=== PATIENT | male | born 1975 | race American Indian/Alaskan Native ===

== ENCOUNTER 2019-12-28 11:49 | Emergency (ER) | payer SELFPAY ==
[2019-12-28] MEDS ORDERED: cloNIDine 0.1 MG TAB PO ONE (15:02)
--- NOTE | 2019-12-28 15:02 | Emergency Department Report ---
- General Chief Complaint: Upper Respiratory Infection Stated Complaint: COUGH Time Seen by Provider: 12/28/19 14:53 Source: patient Mode of arrival: Ambulatory Limitations: No Limitations - History of Present Illness Initial Comments: Patient is 45 years old male with history of hypertension, noncompliant with his medication. Patient presented to the ER complaining of runny nose, cough and congestion for the last 5 days. Patient stated that he works at [employer] and he was asked to come to the ER for evaluation before he can come back to work. Patient denies any fever or chills. He stated that he has been having some sore throat. Patient denied any shortness of breath or chest pain. No nausea or vomiting. No other complaint. MD Complaint: fever, cough, nasal congestion -: days(s) (5) Severity: moderate Consistency: constant - Related Data Allergies Allergy/AdvReac Type Severity Reaction Status Date / Time No Known Allergies Allergy Unverified 12/28/19 11:52 ED Review of Systems ROS: Stated complaint: COUGH Other details as noted in HPI Comment: All other systems reviewed and negative Constitutional: denies: chills, fever ENT: congestion Respiratory: cough. denies: orthopnea, shortness of breath, SOB with exertion, SOB at rest Cardiovascular: palpitations. denies: chest pain Gastrointestinal: denies: abdominal pain, nausea, vomiting, diarrhea, constipation, hematemesis, melena, hematochezia Musculoskeletal: denies: back pain Neurological: denies: headache, weakness, numbness, paresthesias, confusion, abnormal gait ED Past Medical Hx - Past Medical History Hx Hypertension: Yes - Surgical History Additional Surgical History: open heart surgery - Social History Smoking Status: Never Smoker Substance Use Type: Alcohol ED Physical Exam - General Limitations: No Limitations General appearance: alert, in no apparent distress - Head Head exam: Present: atraumatic, normocephalic, normal inspection - Eye Eye exam: Present: normal appearance - ENT ENT exam: Present: normal exam, normal orophraynx, mucous membranes moist - Neck Neck exam: Present: normal inspection, full ROM. Absent: tenderness, meningismus, lymphadenopathy, thyromegaly - Respiratory Respiratory exam: Present: normal lung sounds bilaterally - Cardiovascular Cardiovascular Exam: Present: regular rate, normal rhythm, normal heart sounds - GI/Abdominal GI/Abdominal exam: Present: soft, normal bowel sounds. Absent: distended, tenderness, guarding, rebound, rigid, organomegaly, mass, bruit, pulsatile mass, hernia - Extremities Exam Extremities exam: Present: normal inspection, full ROM, normal capillary refill. Absent: tenderness, pedal edema, joint swelling, calf tenderness - Back Exam Back exam: Present: normal inspection, full ROM. Absent: CVA tenderness (R), CVA tenderness (L), muscle spasm, paraspinal tenderness, vertebral tenderness - Neurological Exam Neurological exam: Present: alert, oriented X3, CN II-XII intact, normal gait, reflexes normal. Absent: motor sensory deficit - Psychiatric Psychiatric exam: Present: normal mood - Skin Skin exam: Present: warm, intact, normal color ED Course Vital Signs 12/28/19 12/28/19 12/28/19 11:55 14:50 15:23 Temperature 98.8 F 98.2 F Pulse Rate 118 H 89 92 H Respiratory 15 20 16 Rate Blood Pressure Blood Pressure 193/123 165/120 205/148 [Right] O2 Sat by Pulse 97 96 96 Oximetry 12/28/19 12/28/19 15:24 16:11 Temperature Pulse Rate 92 H Respiratory Rate Blood Pressure 205/148 Blood Pressure 160/117 [Right] O2 Sat by Pulse Oximetry ED Medical Decision Making - Lab Data Result diagrams: 12/28/19 15:17 12/28/19 15:17 - Radiology Data Radiology results: report reviewed - Medical Decision Making Patient is 45 years old male with history of hypertension, noncompliant with his medication. Patient presented to the ER complaining of runny nose, cough and congestion for the last 5 days. Patient stated that he works at [employer] and he was asked to come to the ER for evaluation before he can come back to work. Patient denies any fever or chills. He stated that he has been having some sore throat. Patient denied any shortness of breath or chest pain. No nausea or vomiting. No other complaint. Labs reviewed and is unremarkable. Chest x-ray is negative for acute finding. Influenza test negative. At this moment there is no clinical, laboratory or imaging evidence of COVID-19. Patient received clonidine 0.2 mg which she help improve his blood pressure to 160/117. Patient still denying any headache, we akness numbness or tingling sensation. No chest pain or shortness of breath. Patient advised to be compliant with his medication and to follow-up with his primary care physician in the next 2 to 3 days and to return to the ER if he develop any new symptoms. Critical care attestation.: If time is entered above; I have spent that time in minutes in the direct care of this critically ill patient, excluding procedure time. ED Disposition Clinical Impression: Upper respiratory infection, Malignant hypertension Disposition: TO HOME OR SELFCARE Is pt being admited?: No Condition: Stable Instructions: Hypertension (ED), Upper Respiratory Infection (ED) Referrals: PRIMARY CARE, [Primary Care Provider] - 3-5 Days
--- NOTE | 2019-12-28 15:29 | XRay Report ---
CHEST 2 VIEWS INDICATION: Cough. COMPARISON: 07/07/2009. FINDINGS: Support devices: None. Heart: Borderline heart size. Lungs/Pleura: No acute air space or interstitial disease. No significant pleural effusion. IMPRESSION: Borderline heart size. Signer Name: Panda Howell MD Signed: 12/28/2019 3:25 PM Workstation Name: [id number]
[2019-12-28 15:36] LABS: Basophils # (Auto) 0.1 K/mm3 (0.0-0.1); Basophils % (Auto) 1.1 % (0.0-1.8); Eosinophils # (Auto) 0.2 K/mm3 (0.0-0.4); Eosinophils % (Auto) 1.6 % (0.0-4.3); Hematocrit 43.7 % (35.5-45.6); Hemoglobin 14.5 gm/dl (11.8-15.2); Lymphocytes # (Auto) 2.9 K/mm3 (1.2-5.4); Lymphocytes % (Auto) 30.2 % (13.4-35.0); Mean Corpuscular HGB Conc 33 % (32-34); Mean Corpuscular Volume 87 fl (84-94); Monocytes # (Auto) 1.3 K/mm3 (0.0-0.8); Monocytes % (Auto) 13.7 % (0.0-7.3); Platelet Count 269 K/mm3 (140-440); Red Blood Count 5.04 M/mm3 (3.65-5.03); Red Cell Distribution Width 13.6 % (13.2-15.2)
[2019-12-28 15:57] LABS: BUN/Creatinine Ratio 15; Blood Urea Nitrogen 16 mg/dL (9-20); Calcium 9.5 mg/dL (8.4-10.2); Hemolysis Index 33
[2019-12-28 16:12] VITALS: BP 160/117
== END 2019-12-28 17:16 | disposition home or self-care (01) ==
LOC: ED 11:49
DX: J06.9 Acute upper respiratory infection, unspecified (principal); I10 Essential (primary) hypertension
CPT/HCPCS: 36415; 71046; 80048; 85025; 87400

== ENCOUNTER 2021-04-06 21:47 | Emergency (ER) | payer OTHER ==
[2021-04-07 01:06] LABS: Basophils % (Auto) 0.5 % (0.0-1.8); Eosinophils # (Auto) 0.2 K/mm3 (0.0-0.4); Eosinophils % (Auto) 2.3 % (0.0-4.3); Hematocrit 42.6 % (35.5-45.6); Hemoglobin 14.6 gm/dl (11.8-15.2); Lymphocytes # (Auto) 1.9 K/mm3 (1.2-5.4); Lymphocytes % (Auto) 27.4 % (13.4-35.0); Mean Corpuscular HGB Conc 34 % (32-34); Mean Corpuscular Volume 86 fl (84-94); Monocytes # (Auto) 0.7 K/mm3 (0.0-0.8); Monocytes % (Auto) 10.9 % (0.0-7.3); Platelet Count 249 K/mm3 (140-440); Red Blood Count 4.97 M/mm3 (3.65-5.03); Red Cell Distribution Width 13.6 % (13.2-15.2)
[2021-04-07 01:08] LABS: BUN/Creatinine Ratio 14
[2021-04-07 05:27] VITALS: BP 142/89
[2021-04-07 06:14] LABS: Alanine Aminotransferase 25 units/L (7-56); Albumin 4.1 g/dL (3.9-5); Blood Urea Nitrogen 15 mg/dL (9-20); Calcium 9.8 mg/dL (8.4-10.2); Hemolysis Index 8
--- NOTE | 2021-04-07 06:15 | Emergency Department Report ---
HPI - General Chief Complaint: High BP Time Seen by Provider: 04/07/21 05:57 - HPI HPI: This is a 46-year-old -[place] male presents to the emergency department with a complaint of a headache and elevated blood pressure. The patient does have a history of hypertension for which she takes losartan and amlodipine. He attributes the headache and elevated blood pressure to the fact that he drank heavily over the weekend. The patient denies any alcohol dependence or daily alcohol consumption. He denies any tobacco or illicit drug use. Headache was relatively consistent over the past 2 to 3 days in the top and frontal region. He denies any vision change, slurred speech, numbness or paresthesias, focal or localized weakness, or any other neurological deficits. The patient did not take anything for his symptoms other than his normal blood pressure medication. He follows with a family medicine clinic for primary care. At the time of my examination the blood pressure is reading within normal range and the patient's headache has decreased to a 1 out of 10 in intensity. No known aggravating or alleviating factors. He denies any fever, chest pain, shortness of breath, lower extremity swelling. ED Past Medical Hx - Past Medical History Hx Hypertension: Yes Hx Diabetes: (borderline) - Surgical History Additional Surgical History: open heart surgery as a child - Social History Smoking Status: Never Smoker - Medications Home Medications: Home Medications Medication Instructions Recorded Confirmed Last Taken Type Losartan Potassium 50 mg PO QDAY 04/07/21 04/07/21 Unknown History Metformin HCl [Glucophage] 1,000 mg PO BID 04/07/21 04/07/21 Unknown History amLODIPine [Norvasc] 10 mg PO DAILY 04/07/21 04/07/21 Unknown History glipiZIDE XL [Glucotrol Xl] 5 mg PO QAM 04/07/21 04/07/21 Unknown History ED Review of Systems ROS: Stated complaint: HBP,HEADACHE Other details as noted in HPI Comment: All other systems reviewed and negative Constitutional: denies: chills, fever Eyes: denies: eye pain, vision change ENT: denies: ear pain, throat pain Respiratory: denies: cough, shortness of breath Cardiovascular: denies: chest pain, palpitations Gastrointestinal: denies: abdominal pain, vomiting Genitourinary: denies: dysuria, discharge Musculoskeletal: denies: back pain, arthralgia Skin: denies: rash, lesions Neurological: headache. denies: weakness, numbness, paresthesias Physical Exam - Physical Exam Vital Signs: Vital Signs 04/06/21 04/07/21 22:28 05:12 Temperature 98.4 F 98.2 F Pulse Rate 104 H 91 H Respiratory 18 20 Rate Blood Pressure 178/112 Blood Pressure 142/89 [Right] O2 Sat by Pulse 98 96 Oximetry Physical Exam: GENERAL: The patient is well-developed well-nourished. HENT: Normocephalic. Atraumatic. Patient has moist mucous membranes. EYES: Extraocular motions are intact. No nystagmus. NECK: Supple. Trachea is midline. CHEST/LUNGS: Clear to auscultation. There is no respiratory distress noted. HEART/CARDIOVASCULAR: Regular. There is no tachycardia. There is no murmur. ABDOMEN: Abdomen is soft, nontender. Patient has normal bowel sounds. SKIN: Skin is warm and dry. NEURO: The patient is awake, alert, and oriented. The patient is cooperative. The patient has no focal neurologic deficits. Normal speech. Cranial nerves II through XII grossly intact. No facial asymmetry. No pronator drift. MUSCULOSKELETAL: There is no tenderness or deformity. There is no limitation range of motion. ED Course Vital Signs 04/06/21 04/07/21 22:28 05:12 Temperature 98.4 F 98.2 F Pulse Rate 104 H 91 H Respiratory 18 20 Rate Blood Pressure 178/112 Blood Pressure 142/89 [Right] O2 Sat by Pulse 98 96 Oximetry ED Medical Decision Making - Lab Data Result diagrams: 04/06/21 22:48 Lab Results 04/06/21 Range/Units 22:48 Sodium 141 (137-145) mmol/L Potassium 3.9 (3.6-5.0) mmol/L Chloride 102.4 (98-107) mmol/L Carbon Dioxide 27 (22-30) mmol/L Anion Gap 16 mmol/L BUN 15 (9-20) mg/dL Creatinine 1.1 (0.8-1.3) mg/dL Glucose 190 H (75-100) mg/dL Calcium 9.8 (8.4-10.2) mg/dL Total Bilirubin 0.50 (0.1-1.2) mg/dL AST 22 (5-40) units/L ALT 25 (7-56) units/L Alkaline Phosphatase 104 (35-129) units/L Total Protein 7.3 (6.3-8.2) g/dL Albumin 4.1 (3.9-5) g/dL The CBC came back within normal limits. No leukocytosis. No anemia. No thrombocytopenia. Lab reported that the troponin was negative at less than 0.010. - EKG Data -: EKG Interpreted by Me EKG shows normal: sinus rhythm, axis, intervals, QRS complexes, ST-T waves Rate: normal - EKG Data When compared to previous EKG there are: previous EKG unavailable Interpretation: normal EKG - Medical Decision Making This patient presents with a complaint of elevated blood pressure and a headache that has been going on since this weekend. The patient was in the emergency department for many hours prior to my shift starting. At the time of my initial examination his blood pressure is within normal limits and his headache is down to a 1 out of 10 in intensity. He does not have any focal, motor or sensory deficits and his cranial nerves are intact. For these reasons I did not feel the patient required advanced CT imaging of the head. Patient's labs have been unremarkable including CBC, metabolic panel and a negative troponin. EKG did not have any morphology consistent with ST elevation myocardial infarction or any dysrhythmia. The patient was seen ambulatory in the emergency department and both appears and feels stable. He has been instructed to continue with his blood pressure medications, avoid salt and caffeine, keep a blood pressure log, and follow-up with his primary care physician. Critical Care Time: No Critical care attestation.: If time is entered above; I have spent that time in minutes in the direct care of this critically ill patient, excluding procedure time. ED Disposition Clinical Impression: Hypertension Qualifiers: Hypertension type: essential hypertension Qualified Code(s): I10 - Essential (primary) hypertension Headache Qualifiers: Headache type: unspecified Headache chronicity pattern: unspecified pattern Intractability: not intractable Qualified Code(s): R51.9 - Headache, unspecified Disposition: DC-01 TO HOME OR SELFCARE Is pt being admited?: No Condition: Stable Instructions: General Headache Without Cause, Hypertension, Adult, Hypertension (ED) Additional Instructions: Please follow-up with your primary care physician in the next few days. Take all of your medications as prescribed. Try to stay away from foods that are high in salt and caffeinated products. Keep a blood pressure log. Return to the emergency department with any worsening of your symptoms, new or concerning symptoms not addressed during this current emergency department visit, or with any acute distress. Referrals: PCP, Your [Other] - 2-3 Days Forms: Work/School Release Form(ED) Time of Disposition: 06:16
--- NOTE | 2021-04-08 14:04 | Electrocardiograph Report ---
[facility] Test Date: 2021-04-06 Test Time: 22:39:12 Pat Name: DOMINIK PETERSON Department: Room: Gender: M Master Esthetician: : 1975 Requested By: REJI ARMANDO Order Number: [id number] Reading MD: Hector Olivares Measurements Intervals [place] Rate: 99 P: 51 MO: 119 QRS: 1 QRSD: 80 T: 8 QT: 354 QTc: 455 Interpretive Statements Sinus rhythm No previous ECG available for comparison Electronically Signed On 04-08-2021 14:03:44 EDT by Hector Olivares
== END 2021-04-07 06:44 | disposition home or self-care (01) ==
LOC: ED 21:47
DX: I10 Essential (primary) hypertension (principal); R51.9 Headache, unspecified; Z79.899 Other long term (current) drug therapy; Z98.890 Other specified postprocedural states
CPT/HCPCS: 36415; 80053; 84484; 85025; 93005